=== PATIENT | male | born 1995 | race African-American/Black ===

== ENCOUNTER 2022-09-24 20:09 | Inpatient (IN) | payer SELFPAY ==
[~2022-09-24] VITALS: Ht 182.9 cm; Wt 83.5 kg
[2022-09-24] MEDS ORDERED: MAGNESIUM/ALUMINUM HYDROXIDE/SIMETHICONE 30ML UDC PO ONE (20:45)
[2022-09-24] MEDS ORDERED: SODIUM CHLORIDE 0.9% 1,000 ML IV ONE ×2 (20:45→22:45)
[2022-09-24] MEDS ORDERED: KETOROLAC 15MG/ML VIAL IV ONE (20:45)
[2022-09-24] MEDS ORDERED: ONDANSETRON HCL 4MG/2ML INJ IV ONE (20:45)
[2022-09-24 21:36] LABS: *AMPHETAMINES SCREEN URINE NEGATIVE (NEGATIVE); *BARBITURATES SCREEN URINE NEGATIVE (NEGATIVE); *BENZODIAZEPINES SCREEN URINE NEGATIVE (NEGATIVE); *COCAINE SCREEN URINE NEGATIVE (NEGATIVE); CANNABINOID URINE SCREEN PRESUMTIVE POSITIVE (NEGATIVE); METHADONE URINE SCREEN NEGATIVE (NEGATIVE); OPIATES URINE SCREEN NEGATIVE (NEGATIVE); PHENCYCLIDINE URINE SCREEN NEGATIVE (NEGATIVE)
[2022-09-24 21:51] LABS: BASOPHILS % 0.2 % (0.0-2.0); HEMATOCRIT. 55.2 % (42.0-52.0); HEMOGLOBIN. 18.6 g/dL (14.0-18.0); LYMPHOCYTES % 10.6 % (20.0-50.0); MONOCYTES % 4.9 % (2.0-8.0); NEUTROPHILS % 84.3 % (40.0-76.0); PLATELET 201 x1000/uL (130-400); RED BLOOD CELL COUNT 6.42 mill/uL (4.7-6.1); RED CELL DISTRIBUTION WIDTH 14.4 % (11.6-14.6)
[2022-09-24 21:58] LABS: CHLORIDE 94 mEq/L (98-107)
[2022-09-24 22:05] LABS: ETHANOL BLOOD < 10 mg/dL
[2022-09-25] MEDS: IPRATROPIUM BROMIDE (0.02%) 0.5MG/2.5ML NEB HHN SCH ×2 (00:56→20:08)
[2022-09-25] MEDS: ALBUTEROL (0.083%) 2.5MG/3ML NEB HHN SCH ×2 (00:56→20:07)
[2022-09-25] MEDS ORDERED: IPRATROPIUM/ALBUTEROL 0.5-3(2.5)MG/3ML NEB HHN SCH (04:00)
[2022-09-25] MEDS ORDERED: CLONIDINE 0.1MG TABLET PO PRN (04:00)
[2022-09-25] MEDS ORDERED: ONDANSETRON HCL 4MG/2ML INJ IV PRN (04:00)
[2022-09-25] MEDS ORDERED: LORAZEPAM 2MG/ML CPJ IV PRN (04:00)
[2022-09-25] MEDS ORDERED: ACETAMINOPHEN 325MG TABLET PO PRN ×2 (04:00)
[2022-09-25] MEDS ORDERED: SODIUM CHLORIDE 0.9% 1,000 ML IV SCH (04:00)
[2022-09-25] MEDS: DEXT 5%/0.9% NACL 1,000 ML IV SCH ×2 (04:53→14:45)
[2022-09-25] MEDS: ENOXAPARIN 40MG/0.4ML SYR SUBCUT SCH (09:16)
[2022-09-25] MEDS: PANTOPRAZOLE SODIUM 40 MG/VIAL IV SCH (09:16)
[2022-09-25 15:56] VITALS: BP 114/54
[2022-09-25 16:35] VITALS: BP 105/50
[2022-09-25 21:49] LABS: CHLORIDE 100 mEq/L (98-107)
[2022-09-26] MEDS: DEXT 5%/0.9% NACL 1,000 ML IV SCH ×2 (00:15→11:37)
[2022-09-26] MEDS: ALBUTEROL (0.083%) 2.5MG/3ML NEB HHN SCH ×3 (04:18→13:01)
[2022-09-26] MEDS: IPRATROPIUM BROMIDE (0.02%) 0.5MG/2.5ML NEB HHN SCH ×3 (04:18→13:01)
[2022-09-26 07:21] LABS: BASOPHILS % 0.8 % (0.0-2.0); EOSINOPHILS % 1.8 % (0.0-5.0); HEMATOCRIT. 41.9 % (42.0-52.0); HEMOGLOBIN. 14.1 g/dL (14.0-18.0); LYMPHOCYTES % 45.6 % (20.0-50.0); MEAN CORPUSCULAR HEMOGLOBIN 29.2 pg (28.0-32.0); MEAN CORPUSCULAR VOLUME 86.5 fL (80.0-94.0); MONOCYTES % 7.7 % (2.0-8.0); NEUTROPHILS % 44.1 % (40.0-76.0); PLATELET 138 x1000/uL (130-400); RED BLOOD CELL COUNT 4.84 mill/uL (4.7-6.1); RED CELL DISTRIBUTION WIDTH 14.1 % (11.6-14.6)
[2022-09-26 07:29] LABS: CHLORIDE 101 mEq/L (98-107)
[2022-09-26 08:09] VITALS: BP 123/56
[2022-09-26] MEDS: ENOXAPARIN 40MG/0.4ML SYR SUBCUT SCH (08:26)
[2022-09-26] MEDS: PANTOPRAZOLE SODIUM 40 MG/VIAL IV SCH (08:27)
[2022-09-26 11:39] VITALS: BP 107/65
[2022-09-26 12:00] VITALS: BP 107/65
== END 2022-09-26 14:01 | disposition home or self-care (01) | DRG 249 ==
LOC: ER 21:04 → MICUSO 23:57 → 6EST 09-25 11:06
PROVIDERS: ADMIT Hospitalist; ATTEND Hospitalist
DX: K52.9 Noninfective gastroenteritis and colitis, unspecified (principal); N17.0 Acute kidney failure with tubular necrosis; E86.0 Dehydration; E87.1 Hypo-osmolality and hyponatremia; E87.8 Other disorders of electrolyte and fluid balance, not elsewhere classified; F17.210 Nicotine dependence, cigarettes, uncomplicated; Z82.49 Family history of ischemic heart disease and other diseases of the circulatory system; R74.01 Elevation of levels of liver transaminase levels
CPT/HCPCS: 36415; 74176; 80048; 80053; 80305; 80320; 83735; 85025; 94640; 99285; C9113; J1650; J1885; J2405; J7030; J7042; G0480